=== PATIENT | female | born 1970 | race Caucasian/White ===

== ENCOUNTER 2018-06-19 06:29 | Day surgery (SDC) | payer BC ==
[2018-06-19] MEDS ORDERED: DEXAMETHASONE PRESERVATIVE FREE 10MG/ML VIAL IV ONE (06:30)
[2018-06-19] MEDS ORDERED: FENTANYL PF 100MCG/2ML VIAL IV ONE (06:30)
[2018-06-19] MEDS ORDERED: KETAMINE HCL 100MG/1ML VIAL INJ ONE (06:30)
[2018-06-19] MEDS ORDERED: HYDROCODONE/APAP 7.5/325MG TABLET PO ONE (06:30)
[2018-06-19] MEDS ORDERED: PROPOFOL 10 MG/ML VIAL IV ONE (06:30)
[2018-06-19] MEDS ORDERED: BUPIVACAINE 0.5% W/EPI MPF 30 ML VIAL IVP ONE (06:30)
[2018-06-19] MEDS ORDERED: LIDOCAINE 2% MDV (20MG/ML) 20ML VIAL IV ONE (06:30)
[2018-06-19] MEDS ORDERED: LIDOCAINE 1% W/EPI 1:200,000 MPF 30ML SQ ONE (06:30)
[2018-06-19] MEDS ORDERED: MIDAZOLAM HCL 2MG/2ML VIAL IV ONE (06:30)
--- NOTE | 2018-06-19 20:15 | Operative Note ---
DATE OF SURGERY: 06/19/2018. PREOPERATIVE DIAGNOSIS: LUMBAR SPONDYLOSIS WITHOUT MYELOPATHY, ICD-10 CODE = M47.816. SURGERY: RADIOFREQUENCY RHIZOTOMY BILATERAL LUMBAR FACETS 3-4, 4-5 AND 5-1. SURGEON: PARI HERNANDEZ D.O. ANESTHESIA: LOCAL SEDATION. ANESTHESIA PROVIDER: ZOILA INDICATION: This patient presents with pain, which is low back. Examination showed tenderness in the lumbar spine. Range of motion does cause pain in the low back with extension. Diagnostics show multilevel spondylosis. A facet series with 75+% pain control. Due to the failure of therapy and the success of the facet series, the patient presents for rhizotomy for more long-term relief. There was some question on the part of the patient as to why we weren't doing the rhizotomy at more levels. The insurance company has authorized only the above levels. SURGERY: Intravenous line, vital sign monitoring, IV sedation, prepped and draped, sterile technique. Under imaging, facets at 3-4, 4-5 and 5-1 bilateral. Each one of these points on the skin infiltrated. A #20 gauge rhizotomy cannula positioned. Stimulation trials conducted. Rhizotomy burn performed. Local with anti-inflammatory into the sites. Topical antibiotics. Sterile dressing applied. We will monitor and evaluate. cc: Dr. Guillermo Esquivel JOB NUMBER: [id number] MTDD
== END 2018-06-19 09:05 | disposition home or self-care (01) ==
LOC: SUR 06:29
PROVIDERS: ATTEND Pain Medicine Interventional Pain Medicine
DX: M47.816 Spondylosis without myelopathy or radiculopathy, lumbar region (principal); Z86.718 Personal history of other venous thrombosis and embolism
CPT/HCPCS: 64635; 64636 ×2; 01936; J1100; J3010; J3490